=== PATIENT | male | born 1960 | race American Indian/Alaskan Native ===

== ENCOUNTER 2017-04-03 08:59 | Emergency (ER) | payer OTHER ==
[2017-04-03 09:22] VITALS: TEMP 98.9; O2SAT 99; BMI 23.7
[2017-04-03] MEDS ORDERED: Sodium Chloride 0.9% 1,000 ML IV STA (09:33)
[2017-04-03 09:54] LABS: URINE BILIRUBIN NEGATIVE (NEGATIVE); URINE BLOOD NEGATIVE (NEGATIVE); URINE GLUCOSE (UA) NEGATIVE (NEGATIVE); URINE KETONE NEGATIVE (NEGATIVE); URINE LEUKOCYTE ESTERASE NEGATIVE Leu/uL (NEGATIVE); URINE PROTEIN TRACE mg/dL (<30 mg/dL); URINE UROBILINOGEN 0.2 E.U./dL (<1 E.U./dL)
[2017-04-03 09:55] LABS: URINE APPEARANCE CLEAR (CLEAR); URINE COLOR YELLOW (YELLOW)
[2017-04-03 10:03] LABS: URINE RBC 0 - 2 /hpf (0-2); URINE WBC 0 - 2 /hpf (0-6)
[2017-04-03 10:07] LABS: ADD MANUAL DIFF? NO
[2017-04-03 10:10] LABS: BASO # 0.02 K/mm3 (0.0-2.0); BASO % 0.3 % (0.0-3.0); EOS # 0.2 (0.0-0.7); EOS % 2.4 % (1.5-5.0); GRAN # 3.22 (1.4-6.5); GRAN % 50.7 % (50.0-68.0); HEMATOCRIT 42.9 % (42.0-52.0); LYMPH # 2.4 (1.2-3.4); LYMPH % 38.2 % (22.0-35.0); MEAN CELL VOLUME 85.3 fL (80.0-105.0); MEAN CORPUSCULAR HEMOGLOBIN 28.8 pg (25.0-35.0); MEAN CORPUSCULAR HGB CONC 33.8 g/dl (31.0-37.0); MEAN PLATELET VOLUME 9.6 fl (7.0-11.0); MONO # 0.5 (0.1-0.6); MONO % 8.4 % (1.0-6.0); PLATELET COUNT 256 10^3/uL (120.0-450.0); RED CELL DISTRIBUTION WIDTH 12.9 % (11.5-14.5); WHITE BLOOD COUNT 6.3 10^3/ul (4.5-11.0)
[2017-04-03 10:19] LABS: INR 0.96 (0.93-1.08); PARTIAL THROMBOPLASTIN TIME 26.1 Seconds (23.7-30.8)
--- NOTE | 2017-04-03 10:19 | ED PDOC ---
Arrival/HPI - General Historian: Patient - General Chief Complaint: Abdominal Pain Time Seen by Provider: 04/03/17 09:15 - History of Present Illness Narrative History of Present Illness (Text): 04/03/17 10:20 56yo male with PMHx of hypertension present with 3days history of abdominal pain with associated nonbilious vomiting and diarrhea. States the last time he vomited was yesterday once and had an episode of diarrhea once this morning. states his abdominal pain resolved. He left work early yesterday and didn't work today. states his job requires Doctor's note and he came to ED. States his colleague at work, had similar symptoms before him. He denies urinary symptoms , fever, chills, chest pain, melena, hematemesis, hematochezia, travel, any other complaint. (Ramon Suero A) Past Medical History - Provider Review Nursing Documentation Reviewed: Yes - Cardiac Hx Hypertension: Yes - Pulmonary Hx Respiratory Disorders: No - Neurological Hx Neurological Disorder: No - HEENT Hx Blind: Yes (right eye) Hx Cataracts: Yes (Right eye) - Hematological/Oncological Hx Blood Disorders: No - Integumentary Hx Dermatological Disorder: No - Musculoskeletal/Rheumatological Hx Musculoskeletal Disorders: No - Gastrointestinal Hx Gastrointestinal Disorders: No - Genitourinary/Gynecological Hx Genitourinary Disorders: No - Psychiatric Hx Psychophysiologic Disorder: No Hx Substance Use: No - Suicidal Assessment Feels Threatened In Home Enviroment: No Family/Social History - Physician Review Nursing Documentation Reviewed: Yes Family/Social History: Unknown Family HX Smoking Status: Never Smoked Hx Alcohol Use: Yes Frequency of alcohol use: Socially Hx Substance Use: No Allergies/Home Meds Allergies/Adverse Reactions: Allergies No Known Allergies Allergy (Verified 04/03/17 09:22) Home Medications: Home Meds Medication Instructions Recorded Confirmed amLODIPine [Norvasc] 5 mg PO DAILY 04/03/17 04/03/17 Review of Systems - Physician Review All systems were reviewed & negative as marked: Yes - Review of Systems Constitutional: Normal Eyes: Normal ENT: Normal Respiratory: Normal Cardiovascular: Normal Gastrointestinal: Abdominal Pain, Diarrhea, Nausea, Vomiting. absent: Constipation, Hematochezia, Hematemesis Genitourinary Male: Normal Musculoskeletal: Normal Skin: Normal Neurological: Normal Endocrine: Normal Hemo/Lymphatic: Normal Psychiatric: Normal Physical Exam Vital Signs Reviewed: Yes Temperature: Afebrile Blood Pressure: Normal Pulse: Regular Respiratory Rate: Normal Appearance: Positive for: Well-Appearing, Non-Toxic, Comfortable Pain Distress: None Mental Status: Positive for: Alert and Oriented X 3 - Systems Exam Head: Present: Atraumatic, Normocephalic Pupils: Present: PERRL Extroacular Muscles: Present: EOMI Conjunctiva: Present: Normal Mouth: Present: Moist Mucous Membranes Neck: Present: Normal Range of Motion Respiratory/Chest: Present: Clear to Auscultation, Good Air Exchange. No: Respiratory Distress, Accessory Muscle Use Cardiovascular: Present: Regular Rate and Rhythm, Normal S1, S2. No: Murmurs Abdomen: Present: Normal Bowel Sounds, Other (Soft). No: Tenderness, Distention , Peritoneal Signs, Rebound, Guarding, McBurney's Point Tender, Rovsing's Sign Present Back: Present: Normal Inspection Upper Extremity: Present: Normal Inspection. No: Cyanosis, Edema Lower Extremity: Present: Normal Inspection. No: Edema Neurological: Present: GCS=15, CN II-XII Intact, Speech Normal Skin: Present: Warm, Dry, Normal Color. No: Rashes Psychiatric: Present: Alert, Oriented x 3, Normal Insight, Normal Concentration Medical Decision Making ED Course and Treatment: 04/03/17 10:30 Pt presented for stated history. His abdominal exam was benign. His lab was unremarkable. He was comfortable in ED. On re evaluation he was still comfortable. His result was DW him. He will be DC home and advised to follow BLAND diet. Referred to his PMD. TRT ED for any new or worsening symptoms. (Pio ,Ramon A) I was available for consultation during PA evaluation. The chart was reviewed by me, and I agree with disposition. The documented history was done by the physician gauger delivery. The documented physical exam was done by the physician gauger delivery. The documented procedures were done by the physician gauger delivery. (Richard Pacheco) - Lab Interpretations Lab Results: 04/03/17 09:50 04/03/17 09:50 Lab Results 04/03/17 09:50: Sodium 139, Potassium 4.1, Chloride 100, Carbon Dioxide 30, Anion Gap 13, BUN 13, Creatinine 1.2, Est GFR ( Amer) > 60, Est GFR (Non- Af Amer) > 60, Random Glucose 119 H, Calcium 9.6, Total Bilirubin 1.2, AST 31, ALT 42, Alkaline Phosphatase 91, Total Protein 7.5, Albumin 4.3, Globulin 3.2, Albumin/Globulin Ratio 1.3, Lipase 131 04/03/17 09:50: PT 10.4, INR 0.96, APTT 26.1 04/03/17 09:50: WBC 6.3, RBC 5.03, Hgb 14.5, Hct 42.9, MCV 85.3, MCH 28.8, MCHC 33.8, RDW 12.9, Plt Count 256, MPV 9.6, Gran % 50.7, Lymph % (Auto) 38.2 H, [place] % (Auto) 8.4 H, Eos % (Auto) 2.4, Baso % (Auto) 0.3, Gran # 3.22, Lymph # 2.4, [place] # 0.5, Eos # 0.2, Baso # 0.02 04/03/17 09:00: Urine Color Yellow, Urine Appearance Clear, Urine pH 7.0, Ur Specific [place] 1.010, Urine Protein Trace H, Urine Glucose (UA) Negative, Urine Ketones Negative, Urine Blood Negative, Urine Nitrate Negative, Urine Bilirubin Negative, Urine Urobilinogen 0.2, Ur Leukocyte Esterase Negative, Urine RBC 0 - 2, Urine WBC 0 - 2 - Medication Orders Current Medication Orders: Discontinued Medications Famotidine (Pepcid) 20 mg IVP STAT STA Stop: 04/03/17 09:34 Last Admin: 04/03/17 09:52 Dose: 20 mg Sodium Chloride (Sodium Chloride 0.9%) 1,000 mls @ 1,000 mls/hr IV .Q1H STA Stop: 04/03/17 10:32 Last Admin: 04/03/17 09:49 Dose: 1,000 mls/hr Ondansetron HCl (Zofran Inj) 4 mg IVP STAT STA Stop: 04/03/17 09:34 Last Admin: 04/03/17 09:52 Dose: 4 mg Disposition/Present on Arrival - Present on Arrival Any Indicators Present on Arrival: No History of DVT/PE: No History of Uncontrolled Diabetes: No Urinary Catheter: No History of Decub. Ulcer: No History Surgical Site Infection Following: None - Disposition Have Diagnosis and Disposition been Completed?: Yes Disposition Time: 10:35 Patient Plan: Discharge - Disposition Diagnosis: Abdominal pain, Vomiting and diarrhea Disposition: HOME/ ROUTINE Patient Problems: Current Active Problems Problem Status Onset Abdominal pain Acute Vomiting and diarrhea Acute Condition: STABLE Discharge Instructions (ExitCare): Acute Nausea and Vomiting (ED), Abdominal Pain (ED) Additional Instructions: Follow BLAND diet for 24hrs Follow up with your Doctor Return to ED for any new or worsening symptoms Prescriptions: Famotidine [Pepcid] 20 mg PO BID #20 tab Ondansetron ODT [Zofran ODT] 4 mg PO Q6 #6 odt Referrals: Conchis Gilmore [Primary Care Provider] - Follow up with primary Forms: WORK NOTE
[2017-04-03 10:20] LABS: ALB/GLOB RATIO 1.3 (1.1-1.8); ALKALINE PHOSPHATASE 91 U/L (38-133); ALT/SGPT 42 U/L (7-56); AST/SGOT 31 U/L (15-59); BILIRUBIN,TOTAL 1.2 mg/dL (0.2-1.3); BLOOD UREA NITROGEN 13 mg/dL (7-21); CALCIUM 9.6 mg/dL (8.4-10.5); CARBON DIOXIDE 30 mmol/L (21-33); CHLORIDE 100 mmol/L (98-107); GFR AFRICAN-AMERICAN > 60; GLUCOSE,RANDOM 119 mg/dL (70-110); LIPASE 131 U/L (23-300); POTASSIUM 4.1 mmol/L (3.6-5.0); SODIUM 139 mmol/L (132-148); TOTAL PROTEIN 7.5 g/dL (5.8-8.3)
[2017-04-03 10:48] VITALS: BP 124/81; PULSE 76; RESP 16
== END 2017-04-03 10:46 | disposition home or self-care (01) ==
LOC: ED 08:59
DX: R10.9 Unspecified abdominal pain (principal); R11.10 Vomiting, unspecified; R19.7 Diarrhea, unspecified; I10 Essential (primary) hypertension
CPT/HCPCS: 80053; 81001; 83690; 85025; 85610; 85730; 96361; 96374; 96375; 99283; J2405; J7040

== ENCOUNTER 2018-12-16 11:54 | Emergency (ER) | payer OTHER ==
[2018-12-16 11:54] VITALS: BMI 23.7
[2018-12-16 12:25] VITALS: RESP 18; O2SAT 99
[2018-12-16 13:15] LABS: BASO # 0.02 K/mm3 (0.0-2.0); BASO % 0.3 % (0.0-3.0); EOS # 0.1 (0.0-0.7); HEMOGLOBIN 13.6 g/dL (14.0-18.0); MEAN CELL VOLUME 85.2 fl (80.0-105.0); MEAN CORPUSCULAR HEMOGLOBIN 27.9 pg (25.0-35.0); MEAN CORPUSCULAR HGB CONC 32.7 g/dl (31.0-37.0); MEAN PLATELET VOLUME 9.4 fl (7.0-11.0); MONO # 0.5 (0.1-0.6); MONO % 8.2 % (1.0-6.0); RBC 4.88 10^6/uL (3.5-6.1); RED CELL DISTRIBUTION WIDTH 13.1 % (11.5-14.5)
[2018-12-16 13:25] LABS: INR 1.03; PARTIAL THROMBOPLASTIN TIME 34.3 Seconds (26.9-38.3); PROTHROMBIN TIME 11.6 SECONDS (9.4-12.5)
[2018-12-16 13:27] LABS: ALB/GLOB RATIO 1.4 (1.1-1.8); ALBUMIN 4.3 g/dL (3.0-4.8); ALT/SGPT 13 U/L (7-56); AST/SGOT 24 U/L (17-59); BLOOD UREA NITROGEN 12 mg/dL (7-21); CALCIUM 9.4 mg/dL (8.4-10.5); GFR NON-AFRICAN AMERICAN > 60
[2018-12-16 13:37] LABS: TROPONIN I < 0.01 ng/mL
--- NOTE | 2018-12-16 13:45 | ED PDOC ---
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 States his job is physically demanding and he has not gone to work secondary to lightheadedness so he came to ED for evaluation. States he have not taken his antihypertensives for few weeks now. States he figure his BP is elevated because he felt lightheaded. Also reports rhinorrhea, states his daughter had cold symptoms. He denies focal weakness, chest pain, headache, visual changes, nausea, vomiting, ripping/tearing upper back pain, fever, chills, cough, any other complaint. Past Medical History - Provider Review Nursing Documentation Reviewed: Yes - Infectious Disease Hx of Infectious Diseases: None - Cardiac Hx Hypertension: Yes - Pulmonary Hx Respiratory Disorders: No - Neurological Hx Neurological Disorder: No - HEENT Hx HEENT Disorder: Yes (rt eye) Hx Blind: Yes (right eye) Hx Cataracts: Yes (Right eye) - Hematological/Oncological Hx Blood Disorders: No - Integumentary Hx Dermatological Disorder: No - Musculoskeletal/Rheumatological Hx Musculoskeletal Disorders: No - Gastrointestinal Hx Gastrointestinal Disorders: No - Genitourinary/Gynecological Hx Genitourinary Disorders: No - Psychiatric Hx Psychophysiologic Disorder: No Hx Substance Use: No - Anesthesia Hx Anesthesia: No - Suicidal Assessment Feels Threatened In Home Enviroment: No Family/Social History - Physician Review Nursing Documentation Reviewed: Yes Family/Social History: Unknown Family HX Smoking Status: Never Smoked Hx Alcohol Use: Yes Hx Substance Use: No Allergies/Home Meds Allergies/Adverse Reactions: Allergies No Known Allergies Allergy (Verified 04/03/17 09:22) Home Medications: Home Meds Medication Instructions Recorded Confirmed RX: amLODIPine [Norvasc] 5 mg PO DAILY 04/03/17 04/03/17 Review of Systems - Physician Review All systems were reviewed & negative as marked: Yes - Review of Systems Constitutional: Normal Eyes: Normal ENT: Normal Respiratory: Normal Cardiovascular: Normal Gastrointestinal: Normal Genitourinary Male: Normal Musculoskeletal: Normal Skin: Normal Neurological: absent: Dizziness (Lightheaded) Endocrine: Normal Hemo/Lymphatic: Normal Psychiatric: Normal Physical Exam Vital Signs Reviewed: Yes Vital Signs Temp Pulse Resp BP Pulse Ox 12/16/18 12:21 98.4 F 68 18 180/101 H 99 12/16/18 11:54 98.4 F 68 18 180/101 H 99 Temperature: Afebrile Blood Pressure: Hypertensive Pulse: Regular Respiratory Rate: Normal Appearance: Positive for: Well-Appearing, Non-Toxic, Comfortable Pain Distress: None Mental Status: Positive for: Alert and Oriented X 3 - Systems Exam Head: Present: Atraumatic, Normocephalic Pupils: Present: PERRL Extroacular Muscles: Present: EOMI Conjunctiva: Present: Normal Mouth: Present: Moist Mucous Membranes Neck: Present: Normal Range of Motion Respiratory/Chest: Present: Clear to Auscultation, Good Air Exchange. No: Respiratory Distress, Accessory Muscle Use Cardiovascular: Present: Regular Rate and Rhythm, Normal S1, S2. No: Murmurs Abdomen: No: Tenderness, Distention, Peritoneal Signs Back: Present: Normal Inspection Upper Extremity: Present: Normal Inspection. No: Cyanosis, Edema Lower Extremity: Present: Normal Inspection. No: Edema Neurological: Present: GCS=15, CN II-XII Intact, Speech Normal Skin: Present: Warm, Dry, Normal Color. No: Rashes Psychiatric: Present: Alert, Oriented x 3, Normal Insight, Normal Concentration Medical Decision Making ED Course and Treatment: 12/16/18 16:42 57yo male in ED for stated history . He was not in any distress in ED. He was neurologically intact. Labs EKG Heart monitor Norvasc 5mg EKG NSR @ 65bpm. Labs was unremarkable Pt's BP improved in ED Pt was DC home with Norvasc rx and referred to his PMD/clinic. Advised to take his medications, hence is not complaint with his medication. - Lab Interpretations Lab Results: PT 11.6 SECONDS (9.4-12.5) 12/16/18 13:11 INR 1.03 12/16/18 13:11 APTT 34.3 Seconds (26.9-38.3) 12/16/18 13:11 Total Bilirubin 0.5 mg/dL (0.2-1.3) 12/16/18 13:11 AST 24 U/L (17-59) 12/16/18 13:11 ALT 13 U/L (7-56) 12/16/18 13:11 Alkaline Phosphatase 82 U/L (38-126) 12/16/18 13:11 Total Protein 7.3 g/dL (5.8-8.3) 12/16/18 13:11 Albumin 4.3 g/dL (3.0-4.8) 12/16/18 13:11 Globulin 3.1 gm/dL 12/16/18 13:11 Albumin/Globulin Ratio 1.4 (1.1-1.8) 12/16/18 13:11 - Medication Orders Current Medication Orders: Amlodipine Besylate (Norvasc) 5 mg PO STAT STA Stop: 12/16/18 13:31 Disposition/Present on Arrival - Present on Arrival Any Indicators Present on Arrival: No History of DVT/PE: No History of Uncontrolled Diabetes: No Urinary Catheter: No History of Decub. Ulcer: No History Surgical Site Infection Following: None - Disposition Have Diagnosis and Disposition been Completed?: Yes Diagnosis: Hypertension Disposition: HOME/ ROUTINE Disposition Time: 14:40 Patient Plan: Discharge Condition: STABLE Discharge Instructions (ExitCare): High Blood Pressure in Adults Additional Instructions: Follow up with your Doctor/clinic Return to ED for any new or worsening symptoms Prescriptions: amLODIPine [Norvasc] 5 mg PO DAILY #15 tab Referrals: Mayelin Mg MD [Medical Doctor] - Follow up with primary Forms: [employer] ([place]er)
[2018-12-16 15:10] VITALS: BP 176/76; PULSE 66; TEMP 98.3
--- NOTE | 2018-12-16 23:35 | CARD ---
APPROVED REPORT Date of service: 12/16/2018 EKG Measurement Heart [id number] <Conclusion> Normal sinus rhythm QS complexes V1-2. Cannot exclude remote ASMI Minor NDSTT abnormalities Abnormal EKG
== END 2018-12-16 15:10 | disposition home or self-care (01) ==
LOC: ED 11:54
DX: I10 Essential (primary) hypertension (principal); H54.8 Legal blindness, as defined in USA